=== PATIENT | female | born 1985 | race Caucasian/White ===

== ENCOUNTER 2017-01-25 05:30 | Inpatient (IN) | payer MEDICAID ==
[2017-01-29] MEDS ORDERED: PRENATAL VIT1 TAB PO (13:51)
[2017-01-29] MEDS ORDERED: PERCOCET 5 DPS1 TAB PO (13:52)
[2017-01-29] MEDS ORDERED: NIPPLECREAM TP (13:52)
[2017-01-29] MEDS ORDERED: MOTRIN-DPS800 MG PO (13:52)
[2017-01-29] MEDS ORDERED: COLACE-DPS100 MG PO (13:52)
== END 2017-01-28 13:30 | disposition home or self-care (01) | DRG 766 ==
DX: O32.1XX0 Maternal care for breech presentation, not applicable or unspecified (principal); Z37.0 Single live birth; Z3A.39 39 weeks gestation of pregnancy